=== PATIENT | female | born 1940 | race Caucasian/White ===

== ENCOUNTER 2017-02-12 00:47 | Emergency (ER) | payer MEDICARE ==
[~2017-02-12] VITALS: Ht 157.5 cm; Wt 67.6 kg
[2017-02-12 01:47] LABS: Basophils # (auto) 0 uL; Basophils % (auto) 0.6 % (0.0-2.0); Eosinophils # (auto) 0.2 uL; Eosinophils % (auto) 2.9 % (0.0-7.0); Hematocrit 41.2 % (36.0-46.0); Hemoglobin 13.6 g/dL (12.2-16.2); Lymphocytes # (auto) 2.9 uL; Lymphocytes % (auto) 37.7 % (10.0-50.0); Mean Corpuscular Hemoglobin 29.8 pg (28.0-32.0); Mean Corpuscular Hgb Conc. 33.1 g/dL (32.0-36.0); Mean Corpuscular Volume 89.9 fL (80.0-100.0); Mean Platelet Volume 8.7 fL (7.4-10.4); Monocytes # (auto) 0.7 uL; Monocytes % (auto) 9.8 % (0.0-12.0); Neutrophils # (auto) 3.7 uL; Platelet Count (auto) 293 10^3/uL (140-450); Red Cell Distribution Width 13.7 % (11.6-16.0); White Blood Cell 7.6 10^3/uL (4.4-10.8)
[2017-02-12 02:01] LABS: Urine Bilirubin Negative (Negative); Urine Blood Negative /uL (Negative); Urine Ca Oxalate Crystal MANY (None Seen); Urine Color Yellow (Yellow); Urine Glucose Normal (Normal); Urine Granular Cast FEW /lpf (0); Urine Hyaline Cast FEW /lpf (0 - 2); Urine Ketone TRACE (Negative); Urine Mucus FEW (None Seen); Urine Nitrite Negative (Negative); Urine RBC 4 /hpf (0 - 4); Urine Squamous Epithelial Cell FEW /hpf (<5); Urine pH 5.5 (5.0-8.0)
[2017-02-12 02:03] LABS: INR 0.9 (0.9-1.15); Partial Thromboplastin Time 27.1 sec (22.64-33.71); Prothrombin Time 9.8 sec (9.37-12.3)
[2017-02-12 02:21] LABS: Albumin 3.9 g/dL (3.4-5.0); Alkaline Phosphatase 65 U/L (45-117); Anion Gap 8 (5-15); Aspartate Aminotransferase 18 U/L (15-37); BUN/Creatinine Ratio 19.2; Bilirubin, Total 0.2 mg/dL (0.2-1.0); Blood Urea Nitrogen 15 mg/dL (7-18); Calcium 8.9 mg/dL (8.5-10.1); Carbon Dioxide 29 mmol/L (21-32); Chloride 106 mmol/L (98-107); GFR African American 93 mL/min; GFR Non-African American 77 mL/min; Glucose 89 mg/dL (74-106); Magnesium 2.3 mg/dL (1.6-2.6); Potassium 3.7 mmol/L (3.5-5.1); Sodium 143 mmol/L (136-145); Total Protein 7.3 g/dL (6.4-8.2)
[2017-02-12 03:13] VITALS: BP 199/81
[2017-02-12] MEDS ORDERED: cloNIDine HCL 0.1 MG TAB PO ONE (03:45)
== END 2017-02-12 04:50 | disposition left against medical advice (07) ==
LOC: ER 00:47
DX: R03.0 Elevated blood-pressure reading, without diagnosis of hypertension (principal); R51 Headache; Z53.21 Procedure and treatment not carried out due to patient leaving prior to being seen by health care provider
CPT/HCPCS: 36415; 70450; 71010; 80053; 81001; 83735; 84484; 85025; 85610; 85730; 93005

== ENCOUNTER 2024-03-18 13:31 | Emergency (ER) | payer MEDICARE, OTHER ==
[~2024-03-18] VITALS: Ht 157.5 cm; Wt 60.1 kg
[2024-03-18 14:19] LABS: Urine Bacteria FEW /hpf (None Seen); Urine Blood Negative /uL (Negative); Urine Clarity Clear (Clear); Urine Color Light-Yellow (Yellow); Urine Protein, UAD Negative (Negative); Urine Specific Gravity 1.015 (1.001-1.035); Urine Urobilinogen Normal (Negative); Urine WBC 5 /hpf (0 - 5)
[2024-03-18 15:44] VITALS: BP 138/52; PULSE 53; RESP 18; TEMP 97.7; O2SAT 97
[2024-03-18] MEDS ORDERED: ACET-1080 PO (15:49)
[2024-03-18] MEDS ORDERED: PRED20TA2 PO (15:49)
[2024-03-18] MEDS: methylPREDNISolone SOD SUCC 125 MG/2 ML VL IM ONE (15:56)
== END 2024-03-18 16:01 | disposition home or self-care (01) ==
LOC: ER 13:31
DX: M51.16 Intervertebral disc disorders with radiculopathy, lumbar region (principal); I10 Essential (primary) hypertension; Z86.73 Personal history of transient ischemic attack (TIA), and cerebral infarction without residual deficits; Z98.890 Other specified postprocedural states; Z88.8 Allergy status to other drugs, medicaments and biological substances; Z79.899 Other long term (current) drug therapy
CPT/HCPCS: 72100; 81001; 96372; 99284; J2919

== ENCOUNTER 2024-08-11 17:17 | Emergency (ER) | payer OTHER ==
[~2024-08-11] VITALS: Ht 157.5 cm; Wt 63.5 kg
[~2024-08-11 17:17] MED LIST: ACET-1080 PO; PRED20TA2 PO
--- NOTE | 2024-08-11 18:48 | DVH ---
EXAM: XY R KNEE 3V XRAY CLINICAL HISTORY: Trauma/fall COMPARISON: None TECHNIQUE: XY R KNEE 3V XRAY Findings/Impression: 3 views of the right knee. There is no evidence of an acute fracture, dislocation, blastic, or lytic lesions. Mild tricompartmen wanda reactive osteophytosis suggestive of osteoarthritis. No radiopaque foreign bodies. No joint effusion or superficial soft tissue abnormalities.
--- NOTE | 2024-08-11 19:22 | DVH ---
EXAM: CT MAXILLOFACIAL WITHOUT INDICATION: FACE PAIN S/P FALL EXAM DATE: 08/11/2024 06:27 PM COMPARISON: None TECHNIQUE: Multiple axial CT images of the maxilla and face were obtained using bone algorithm. Axial and coronal reformatting was done. Bone and soft tissue windows were reviewed. Radiation Dose Information: CT Dose: CTDI volume is 62.06 mGy. Dose-length product is 1310.19 mGy*cm Findings: There is no evidence of an acute fracture or traumatic subluxations. No evidence of lytic, blastic, or osseous destructive lesions. The paranasal sinuses, middle ear cavities, and mastoid air cells are normally aerated. The globes an d orbits are within normal limits. The nasal septum, nasal cavity, nasopharynx, and oropharynx are grossly unremarkable. The thyroid gland is diminutive. The paraspinal and neck soft tissues appear within normal limits. Mo derate degenerative changes of the cervical spine. Impression: 1. No evidence of an acute fracture.
--- NOTE | 2024-08-11 19:45 | ED.PDOC ---
Rajan. trauma (HPI) HPI Comments This patient is a pleasant 83-year-old female who arrives to the ED today for evaluation of right-sided face pain and right knee pain status post ground [place] a market. Patient states she was in the marked when she tripped over a case of water, landing on the right side of her face and right knee. Patient denies any LOC. Patient states she got a small cut to her right- sided lower lip, but there was no active bleed at time of evaluation.. Patient denies any fever nausea or vomiting. Patient was hypertensive on arrival. Patient states her tetanus is out-of-date. Chief Complaint: Fall Injury Time Seen by MD: 17:51 Primary Care Provider: DIOGENES Reviewed notes: Nurses Notes Allergies: Coded Allergies: Methocarbamol (Verified Allergy, Mild, 06/10/12) Baclofen (Verified Allergy, Unknown, 02/12/17) Diltiazem (Verified Allergy, Unknown, 02/12/17) Hydrochlorothiazide (Verified Allergy, Unknown, 02/12/17) Potassium Chloride (Verified Allergy, Unknown, 02/12/17) Sulfamethoxazole w/Trimethoprim (Verified Allergy, Unknown, 02/12/17) Terbinafine (Verified Allergy, Unknown, 02/12/17) Home Meds Active Scripts Prednisone (Prednisone) 20 Mg Tab, 40 MG PO DAILY, #20 TAB Prov:GISELL MAGALLON 03/18/24 Acetaminophen (Tylenol 8 Hour Arthritis) 650 Mg Tab, 650 MG PO TID, #30 TAB Prov:GISELL MAGALLON 03/18/24 Information Source: Patient, Friend Mode of Arrival: Ambulatory Severity: Mild Timing: Days Duration: Since onset Prehospital treatment: None Location: Face, (R) Knee Location of laceration: Mouth Mechanism: Fall Past Medical History PAST MEDICAL HISTORY: CVA, HTN Surgical History: Hysterectomy, Tubal Ligation 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 OPERATOR History Family History Family History: No family hx of Heart fr[place] Family History (Other): seizures, parkinsons Social History Smoker: Non-Smoker Alcohol: Rarely Drugs: Denies Drug Use Lives In: Home Constitutional: denies: chills, diaphoresis, fatigue, fever, malaise, sweats, weakness, others EENTM: reports: others (Right-sided facial pain); denies: blurred vision, double vision, ear bleeding, ear discharge, ear drainage, ear pain, ear ringing, eye pain, eye redness, hearing loss, mouth pain, mouth swelling, nasal discharge, nose bleeding, nose congestion, nose pain, photophobia, tearing, throat pain, throat swelling, voice changes Respiratory: denies: cough, hemoptysis, orthopnea, SOB at rest, shortness of breath, SOB with excertion, stridor, wheezing, others Cardiovascular: denies: chest pain, dizzy spells, diaphoresis, Dyspnea on exertion, edema, irregular heart beat, left arm pain, lightheadedness, palpitations, PND, syncope, others Gastrointestinal: denies: abdomen distended, abdominal pain, blood streaked bowels, constipated, diarrhea, dysphagia, difficulty swallowing, hematemesis, melena, nausea, poor appetite, poor fluid intake, rectal bleeding, rectal pain, vomiting, others Genitourinary: denies: abnormal vagina bleeding, burning, dyspareunia, dysuria, flank pain, frequency, hematuria, incontinence, pain, , vagina discharge, urgency, others Neurological: denies: dizziness, fainting, headache, left sided numbness, left sided weakness, numbness, paresthesia, pre-existing deficit, right sided numbness, right sided weakness, seizure, speech problems, tingling, tremors, weakness, others Musculoskeletal: reports: others (Right knee pain); denies: back pain, gout, joint pain, joint swelling, muscle pain, muscle stiffness, neck pain Integumetry: reports: laceration (Right-sided lower lip); denies: bruises, change in color, change in hair/nails, dryness, lesions, lumps, rash, wounds, others Allergic/Immunocompromised: denies: Difficulty Healing, Frequent Infections, Hives, Itching, others Hematologic/Lymphatic: denies: anemia, blood clots, easy bleeding, easy bruising, swollen glands, others Endocrine: denies: excessive hunger, excessive sweating, excessive thirst, excessive urination, flushing, intolerance to cold, intolerance to heat, unexplained weight gain, unexplained weight loss, others Psychiatric: denies: anxiety, bipolar disorder, depression, hopeless, panic disorder, schizophrenia, sleepless, suicidal, others Physical Exam General Appearance: Mild Distress (Moderate distress due to some facial pain and knee pain concerns.), Normal HEENT: Pharynx Normal, TMs Normal, Other (Patient displays some mild edema of the right-sided face in and around the zygomatic arch. No significant signs of trauma. No skull depressions or deformities. Patient has a superficial 2 mm lack to the right-sided lower lip.) Neck: Full Range of Motion, Non-Tender, Normal, Normal Inspection Respiratory: Chest Non-Tender, Lungs Clear, No Accessory Muscle Use, No Respiratory Distress, Normal Breath Sounds Cardiovascular: No Edema, No JVD, No Murmur, No Gallop, Normal Peripheral Pulses, Regular Rate/Rhythm Breast Exam: Deferred Gastrointestinal: No Organomegaly, Non Tender, No Pulsatile Mass, Normal Bowel Sounds, Soft Genitalia: Deferred Pelvic: Deferred Rectal: Deferred Extremities: No calf tenderness, Normal capillary refill, No pedal edema, Other (Diffuse anterior right knee tenderness to palpation throughout the inferior patella into the tibial tuberosity region. Possible mild edema. No ecchymosis or erythema. [id number] reduced range of motion. 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 Was a procedure done?: No Differential Diagnosis Multiple Trauma: Other (Subarachnoid hemorrhage, subdural hematoma, skull fracture, right knee fracture, right knee contusion, head injury, fall) X-Ray, Labs, Meds, VS Vital Signs Date Time Temp Pulse Resp B/P (MAP) Pulse Ox O2 Delivery O2 Flow Rate FiO2 08/11/24 17:30 99.5 81 18 171/77 (108) 96 X-Ray, Labs, Meds, VS Comment All studies performed the ED today were evaluated by me personally. Maxillofacial evaluation is unremarkable for any facial fractures. Right knee imaging studies were unremarkable for any acute fractures, but did displays degeneration of her right knee. Patient received a tetanus update. Advised patient utilize Tylenol and or Motrin as needed for pain relief. Time of 1ST Reevaluation: 19:44 Reevaluation 1ST: Unchanged Consultation: PCP Patient Education/Counseling: Diagnosis, Treatment Family Education/Counseling: Diagnosis, Treatment Departure 1 Departure Time of Disposition: 19:44 Impression: Primary Impression: Fall Additional Impressions: Facial contusion Knee contusion Disposition: HOME / SELF CARE / HOMELESS Condition: Stable Additional Instructions: Advised Tylenol and or Motrin as needed for pain relief as well as ice therapy. Discharged With: Self, Relative Critical Care Note Critical Care Time?: No Stability Stability form required: No Heart Score Heart Score: Heart Score Response (Comments) Value History N/A 0 EKG N/A 0 Age N/A 0 Risk Factors N/A 0 Troponin N/A 0 Total 0 HANNA FRANCO PAC Aug 11, 2024 19:45
[2024-08-11] MEDS: TETANUS-DIPTH-ACEL PERTUSSIS 0.5ML SYR Tdap IM ONE (21:30)
[2024-08-11 23:29] VITALS: BP 157/60; PULSE 53; RESP 18; TEMP 98.3; O2SAT 98
== END 2024-08-11 19:45 | disposition home or self-care (01) ==
LOC: ER 17:17
DX: S00.83XA Contusion of other part of head, initial encounter (principal); S80.01XA Contusion of right knee, initial encounter; I10 Essential (primary) hypertension; Z79.52 Long term (current) use of systemic steroids; Z86.73 Personal history of transient ischemic attack (TIA), and cerebral infarction without residual deficits; Z88.1 Allergy status to other antibiotic agents; Z88.2 Allergy status to sulfonamides; Z90.710 Acquired absence of both cervix and uterus; Z98.51 Tubal ligation status; W01.0XXA Fall on same level from slipping, tripping and stumbling without subsequent striking against object, initial encounter; Y93.89 Activity, other specified; Y92.89 Other specified places as the place of occurrence of the external cause; Y99.8 Other external cause status
CPT/HCPCS: 70486; 73562; 90471; 90715

== ENCOUNTER 2024-08-20 06:49 | Inpatient (IN) | payer OTHER ==
[~2024-08-20] VITALS: Ht 165.1 cm; Wt 62.4 kg
[2024-08-20] VITALS (7 sets, daily range): BP systolic 117–145; BP diastolic 52–63; PULSE 60–74; RESP 16–20; TEMP 97.8–99.5; O2SAT 90–99
[2024-08-20] MEDS: HYDROcodone-ACET 5/325MG TAB PO ONE (07:00)
--- NOTE | 2024-08-20 07:07 | ED.PDOC ---
Musculoskeletal HPI Comments 83Y F with PMHx HTN, hysterectomy, and tubal ligation presents to ED via EMS for chief complaint RUE pain x1wk. Pt had a fall 1wk ago and landed on her face. Pt says she experienced lip bleeding immediately after the fall. Days after the fall, pt developed bruise on rt knee and pain on rt arm. Pt states her RUE feels numb and paralyzed today. EMS provided pt with Acetaminophen IV. Pt was seen at [facility] ER on 08/11/2024 for dx fall. Chief Complaint: Upper Extremity Time Seen by MD: 06:50 Primary Care Provider: DIOGENES Langley Notes: Medications, Allergies Allergies: Coded Allergies: Methocarbamol (Verified Allergy, Mild, 06/10/12) Baclofen (Verified Allergy, Unknown, 02/12/17) Diltiazem (Verified Allergy, Unknown, 02/12/17) Hydrochlorothiazide (Verified Allergy, Unknown, 02/12/17) Potassium Chloride (Verified Allergy, Unknown, 02/12/17) Sulfamethoxazole w/Trimethoprim (Verified Allergy, Unknown, 02/12/17) Terbinafine (Verified Allergy, Unknown, 02/12/17) Home Meds Active Scripts Prednisone (Prednisone) 20 Mg Tab, 40 MG PO DAILY, #20 TAB Prov:GISELL MAGALLON 03/18/24 Acetaminophen (Tylenol 8 Hour Arthritis) 650 Mg Tab, 650 MG PO TID, #30 TAB Prov:GISELL MAGALLON 03/18/24 Information Source: Patient, Emergency Med Personnel Mode of Arrival: EMS Brought in by: EMS Location: Right Extremity Location: Elbow, Knee, Shoulder Timing: Weeks Prehospital treatment: Pain Meds Severity: Mild Able to Move Extremity: Yes Bear Weight: Limited Pain: Mild Mechanism: Unknown Circumstances: Fall Onset of Symptoms: After Trauma Symptoms: Pain DVT Risk Factors: NONE Last Tetanus: UTD Associated signs and symptoms: Shoulder pain, Weakness, Knee pain, Numbness, Elbow pain Past Medical History PAST MEDICAL HISTORY: CVA, HTN Surgical History: Hysterectomy, Tubal Ligation 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 MACHINE OPERATOR History Family History Family History: No family hx of Heart fr[place] Family History (Other): seizures, parkinsons Social History Smoker: Non-Smoker Alcohol: Rarely Drugs: Denies Drug Use Lives In: Home Constitutional: denies: chills, diaphoresis, fatigue, fever, malaise, sweats, weakness, others EENTM: denies: blurred vision, double vision, ear bleeding, ear discharge, ear drainage, ear pain, ear ringing, eye pain, eye redness, hearing loss, mouth pain, mouth swelling, nasal discharge, nose bleeding, nose congestion, nose pain, photophobia, tearing, throat pain, throat swelling, voice changes, others Respiratory: denies: cough, hemoptysis, orthopnea, SOB at rest, shortness of breath, SOB with excertion, stridor, wheezing, others Cardiovascular: denies: chest pain, dizzy spells, diaphoresis, Dyspnea on exertion, edema, irregular heart beat, left arm pain, lightheadedness, palpitations, PND, syncope, others Gastrointestinal: denies: abdomen distended, abdominal pain, blood streaked bowels, constipated, diarrhea, dysphagia, difficulty swallowing, hematemesis, melena, nausea, poor appetite, poor fluid intake, rectal bleeding, rectal pain, vomiting, others Genitourinary: denies: abnormal vagina bleeding, burning, dyspareunia, dysuria, flank pain, frequency, hematuria, incontinence, pain, , vagina discharge, urgency, others Neurological: denies: dizziness, fainting, headache, left sided numbness, left sided weakness, numbness, paresthesia, pre-existing deficit, right sided numbness, right sided weakness, seizure, speech problems, tingling, tremors, weakness, others Musculoskeletal: reports: joint pain (rt knee, rt elbow, rt shoulder); denies: back pain, gout, joint swelling, muscle pain, muscle stiffness, neck pain, others Integumetry: denies: bruises, change in color, change in hair/nails, dryness, laceration, lesions, lumps, rash, wounds, others Allergic/Immunocompromised: denies: Difficulty Healing, Frequent Infections, Hives, Itching, others Hematologic/Lymphatic: denies: anemia, blood clots, easy bleeding, easy bruising, swollen glands, others Endocrine: denies: excessive hunger, excessive sweating, excessive thirst, excessive urination, flushing, intolerance to cold, intolerance to heat, unexplained weight gain, unexplained weight loss, others Psychiatric: denies: anxiety, bipolar disorder, depression, hopeless, panic disorder, schizophrenia, sleepless, suicidal, others All Other Systems: Reviewed and Negative Physical Exam General Appearance: No Apparent Distress, Normal HEENT: Normal ENT Inspection, Pharynx Normal, TMs Normal Neck: Full Range of Motion, Non-Tender, Normal, Normal Inspection Respiratory: Chest Non-Tender, Lungs Clear, No Accessory Muscle Use, No Respiratory Distress, Normal Breath Sounds Cardiovascular: No Edema, No JVD, No Murmur, No Gallop, Normal Peripheral Pulses, Regular Rate/Rhythm Breast Exam: Deferred Gastrointestinal: No Organomegaly, Non Tender, No Pulsatile Mass, Normal Bowel Sounds, Soft Genitalia: Deferred Pelvic: Deferred Rectal: Deferred Extremities: No calf tenderness, Normal capillary refill, Normal inspection, N ormal range of motion, Non-tender, No pedal edema Musculoskeletal : Location: Right Extremity Location: Elbow, Knee Apperance: Tenderness Neurologic: Alert, sash sticker II-XII nml as Tested, No Motor Deficits, Normal Affect, Normal Mood, No Sensory Deficits Cerebellar Function: Normal Reflexes: Normal Skin: Dry, Normal Color, Warm Lymphatic: No Adenopathy Was a procedure done? Was a procedure done?: No Differential Diagnosis EXT Differential Diagnosis: Fracture, Sprain, Dislocation, Contusion, Strain X-Ray, Labs, Meds, VS Vital Signs Date Time Temp Pulse Resp B/P (MAP) Pulse Ox O2 Delivery O2 Flow Rate FiO2 08/20/24 07:19 67 18 95 Room Air* 0 21 08/20/24 07:19 98.1 67 18 113/56 (75) 95 98.1 08/20/24 06:53 98.0 71 18 148/67 (94) 99 Lab Test 08/20/24 09:46 Range/Units White Blood Count 9.7 4.4-10.8 10^3/uL Red Blood Count 4.22 4.0-5.20 10^6/uL Hemoglobin 13.0 12.2-16.2 g/dL Hematocrit 38.8 36.0-46.0 % Mean Corpuscular Volume 91.9 80.0-100.0 fL Mean Corpuscular Hemoglobin 30.9 28.0-32.0 pg Mean Corpuscular Hemoglobin Concent 33.6 32.0-36.0 g/dL Red Cell Distribution Width 13.8 11.8-14.3 % Platelet Count 255 140-450 10^3/uL Mean Platelet Volume 8.1 6.9-10.8 fL Neutrophils (%) (Auto) 69.4 37.0-80.0 % Lymphocytes (%) (Auto) 14.8 10.0-50.0 % Monocytes (%) (Auto) 15.0 H 0.0-12.0 % Eosinophils (%) (Auto) 0.4 0.0-7.0 % Basophils (%) (Auto) 0.4 0.0-2.0 % Neutrophils # (Auto) 6.7 1.6-8.6 10 ^3/uL Lymphocytes # (Auto) 1.4 0.4-5.4 10 ^3/uL Monocytes # (Auto) 1.5 H 0-1.3 10 ^3/uL Eosinophils # (Auto) 0 0-0.8 10 ^3/uL Basophils # (Auto) 0 0-0.2 10 ^3/uL Nucleated Red Blood Cells 0.0 % Sodium Level 136 136-145 mmol/L Potassium Level 3.8 3.5-5.1 mmol/L Chloride Level 102 98-107 mmol/L Carbon Dioxide Level 24 20-31 mmol/L Anion Gap 10 5-15 Blood Urea Nitrogen 15 9-23 mg/dL Creatinine 0.73 0.550-1.02 mg/dL Glomerular Filtration Rate Calc 82 >90 mL/min BUN/Creatinine Ratio 20.5 H 10.0-20.0 Serum Glucose 113 H 74-106 mg/dL Calcium Level 10.2 8.7-10.4 mg/dL Troponin I High Sensitivity 4 </=34 ng/L Current Medications Medications (Trade) Dose Ordered Sig/Evelyne Route Start Time Stop Time Status Last Admin Acetaminophen/ Hydrocodone Bitart ([place] 5/325MG Tab) 1 tab ONCE ONCE PO 08/20/24 07:00 08/20/24 07:01 DC 08/20/24 07:00 [place] [address] Ph: [phone] DIAGNOSTIC IMAGING Diagnostic Imaging Report : [id number] Signed PATIENT: SAURAV CABRERA ACCT: [id number] UNIT: [id number] : 1940 LOC: ER ROOM / BED: / AGE / SEX: 83 / F ADM STATUS: REG ER SERVICE [id number] ORDERING PHYSICIAN: KAREN GARZON MD PROCEDURE(s): RELB3 - R ELBOW 3 VIEW XRAY REASON: FALL A WEEK AGO / PAIN ORDER NUMBER(s): [id number], ACCESSION NUMBER(s): [id number] CLINICAL INFORMATION: 83 years old, Female; fall injury 1 week ago. Pain. TECHNIQUE: 3 views of the right elbow were obtained. COMPARISON: No prior imaging of the right elbow was available for comparison at the time of dictation. FINDINGS: There is a moderate amount of fluid in the joint, possible hemarthrosis in the setting of recent trauma. There are small densities adjacent to the radial/lateral aspect of the radial head, may be sequela of avulsion injury in the appropriate clinical setting. Curvilinear density along the proximal dorsal aspect of the olecranon, may be sequela of tendinopathy, of uncertain chronicity. Thickened appearing distal triceps tendon. Moderate arthritic changes are seen. Mild diffuse soft tissue swelling around the elbow. IMPRESSION: 1. Multiple small densities are seen adjacent to the lateral /radial aspect of the radial head, suspected sequela of avulsion injury. 2. Moderate fluid in the joint, possible hemarthrosis in the setting of recent trauma. 3. Soft tissue swelling near the expected location of the triceps tendon insertion with curvilinear density, may be sequela of tendinopathy, of uncertain chronicity. Correlate with clinical findings. MRI may be helpful to further characterize. 4. Additional findings as detailed above. ATED BY: RJ ESTEBAN DO DICTATED DATE/TIME: 08/20/24832 SIGNED BY: RJ ESTEBAN DO SIGNED DATE/TIME: 08/20/24832 CC: [place] [address] Ph: [phone] DIAGNOSTIC IMAGING Diagnostic Imaging Report : [id number] Signed PATIENT: SAURAV CABRERA ACCT: [id number] UNIT: [id number] : 1940 LOC: ER ROOM / BED: / AGE / SEX: 83 / F ADM STATUS: REG ER SERVICE 1 ORDERING PHYSICIAN: KAREN GARZON MD PROCEDURE(s): RKN3 - R KNEE 3V XRAY REASON: FALL WEEK AGO PAIN ORDER NUMBER(s): [id number], ACCESSION NUMBER(s): [id number] CLINICAL INFORMATION: 83 years old, Female; right knee pain after fall injury 1 week ago. TECHNIQUE: 3 views of the right knee were obtained. COMPARISON: XY R KNEE 3V XRAY on DOS: 08/11/24 FINDINGS: No acute fracture or dislocation. Moderate arthritic changes, most prominent involving the medial compartment and patellofemoral compartment. Prominent spurring of the superior pole of the patella. Calcifications posterior to the distal femur are most likely vascular calcifications. No significant joint effusion visualized. Somewhat limited evaluation for joint effusion on cross-table lateral view. IMPRESSION: 1. No acute fracture visualized. 2. Chronic appearing findings as described above. Correlate with clinical findings. If clinically indicated, CT or MRI could be obtained to further evaluate. ATED BY: RJ ESTEBAN DO DICTATED DATE/TIME: 08/20/24835 SIGNED BY: RJ ESTEBAN DO SIGNED DATE/TIME: 08/20/24835 CC: Time of 1ST Reevaluation: 07:20 Reevaluation 1ST: Unchanged Patient Education/Counseling: Diagnosis, Treatment Family Education/Counseling: No Family Present Departure 1 Departure Time of Disposition: 10:42 (Patient's family is at bedside and actually has a independent historian who says that patient has had multiple falls. Patient reports being very weak and syncopized seeing multiple times last couple days. Workup so far is benign however we will admit patient for further workup and expert consultation) Impression: Primary Impression: Frequent falls Additional Impressions: Syncope and collapse Right arm pain Right arm numbness Right knee pain Qualified Codes: M25.561 - Pain in right knee Disposition: ADMITTED INPATIENT Admit to: Med Surg Condition: Serious Critical Care Note Critical Care Time?: No Stability Stability form required: No I personally scribed for KAREN GARZON MD ([email or web address]) on 08/20/24 at 07:07. Electronically submitted by Yomaira Martinez ([email or web address]). I personally scribed for KARNE GARZON MD ([email or web address]) on 08/20/24 at 08:49. Electronically submitted by Yomaira Martinez ([facility] KAREN GARZON MD Aug 20, 2024 07:07
--- NOTE | 2024-08-20 08:35 | DVH ---
CLINICAL INFORMATION: 83 years old, Female; fall injury 1 week ago. Pain. TECHNIQUE: 3 views of the right elbow were obtained. COMPARISON: No prior imaging of the right elbow was available for comparison at the time of dictation . FINDINGS: There is a moderate amount of fluid in the joint, possible hemarthrosis in the setting of r ecent trauma. There are small densities adjacent to the radial/lateral aspect of the radial head, may be sequela of avulsion injury in the appropriate clinical setting. Curvilinear density along the pro ximal dorsal aspect of the olecranon, may be sequela of tendinopathy, of uncertain chronicity. Thicke monica appearing distal triceps tendon. Moderate arthritic changes are seen. Mild diffuse soft tissue swelling around the elbow. IMPRESSION: 1. Multiple small densities are seen adjacent to the lateral /radial aspect of the radial head, suspe cted sequela of avulsion injury. 2. Moderate fluid in the joint, possible hemarthrosis in the setting of recent trauma. 3. Soft tissue swelling near the expected location of the triceps tendon insertion with curvilinear d ensity, may be sequela of tendinopathy, of uncertain chronicity. Correlate with clinical findings. MR I may be helpful to further characterize. 4. Additional findings as detailed above.
--- NOTE | 2024-08-20 08:38 | DVH ---
CLINICAL INFORMATION: 83 years old, Female; right knee pain after fall injury 1 week ago. TECHNIQUE: 3 views of the right knee were obtained. COMPARISON: XY R KNEE 3V XRAY on DOS: 08/11/24 FINDINGS: No acute fracture or dislocation. Moderate arthritic changes, most prominent involving the medial compartment and patellofemoral compartment. Prominent spurring of the superior pole of the pat dante. Calcifications posterior to the distal femur are most likely vascular calcifications. No signif icant joint effusion visualized. Somewhat limited evaluation for joint effusion on cross-table latera l view. IMPRESSION: 1. No acute fracture visualized. 2. Chronic appearing findings as described above. Correlate with clinical findings. If clinically in dicated, CT or MRI could be obtained to further evaluate.
[2024-08-20 09:57] LABS: Basophils # (auto) 0 10 ^3/uL (0-0.2); Basophils % (auto) 0.4 % (0.0-2.0); Eosinophils # (auto) 0 10 ^3/uL (0-0.8); Eosinophils % (auto) 0.4 % (0.0-7.0); Hematocrit 38.8 % (36.0-46.0); Lymphocytes # (auto) 1.4 10 ^3/uL (0.4-5.4); Lymphocytes % (auto) 14.8 % (10.0-50.0); Mean Corpuscular Hemoglobin 30.9 pg (28.0-32.0); Mean Corpuscular Hgb Conc. 33.6 g/dL (32.0-36.0); Mean Corpuscular Volume 91.9 fL (80.0-100.0); Monocytes # (auto) 1.5 10 ^3/uL (0-1.3); Neutrophils # (auto) 6.7 10 ^3/uL (1.6-8.6); Neutrophils % (auto) 69.4 % (37.0-80.0); Platelet Count (auto) 255 10^3/uL (140-450); Red Blood Cells 4.22 10^6/uL (4.0-5.20); Red Cell Distribution Width 13.8 % (11.8-14.3); White Blood Cell 9.7 10^3/uL (4.4-10.8)
[2024-08-20 10:05] LABS: Chloride 102 mmol/L (98-107); Potassium 3.8 mmol/L (3.5-5.1)
[2024-08-20 10:06] LABS: Anion Gap 10 (5-15); Calcium 10.2 mg/dL (8.7-10.4); Carbon Dioxide 24 mmol/L (20-31)
[2024-08-20 10:11] LABS: BUN/Creatinine Ratio 20.5 (10.0-20.0); Blood Urea Nitrogen 15 mg/dL (9-23)
[2024-08-20 10:18] LABS: Glucose 113 mg/dL (74-106); Sodium 136 mmol/L (136-145)
--- NOTE | 2024-08-20 10:25 | DVH ---
CLINICAL INFORMATION: 83 years old, Female; syncope and multiple falls. TECHNIQUE: Axial imaging was obtained through the brain without contrast. Coronal and sagittal refor matted images were obtained, reviewed, and stored. Images were reviewed in brain and bone windows. A ll CT scans at this medical facility are performed using dose modulation techniques as appropriate to a performed exam including the following: Automated exposure control was utilized; adjustment of the MA and/or KV according to patient size; and use of iterative reconstruction technique. CTDIvol = 49.6 mGy DLP = 794.2 mGy-cm COMPARISON: None FINDINGS: There is no acute intracranial hemorrhage or extraaxial fluid collection. No mass effect o r midline shift. Atrophic changes with prominence of the ventricles and widening of the sulci. Basa l cisterns are patent. Scattered areas of hypoattenuation are seen in the periventricular and subcort ical white matter, which are nonspecific but most likely sequelae of small vessel ischemic disease. The calvarium is unremarkable. Paranasal sinuses and mastoid air cells are clear. IMPRESSION: 1. No CT evidence of acute intracranial abnormality. 2. Nonacute findings as described above.
--- NOTE | 2024-08-20 10:36 | DVH ---
CLINICAL INFORMATION: 83 years old, Female; syncope and multiple falls. TECHNIQUE: Single AP portable chest radiograph was obtained. COMPARISON: None FINDINGS: Lungs: Atelectasis in the lung bases. No focal consolidation. Cardiac: Heart size is within normal limits. Pulmonary vasculature: Unremarkable. Mediastinum/kj: Unremarkable. Bones: No acute osseous abnormality identified. Other: No other significant findings. IMPRESSION: Atelectasis in the lung bases. No focal consolidation.
--- NOTE | 2024-08-20 10:38 | DVH ---
CLINICAL INFORMATION: 83 years old, Female; syncope and multiple falls. TECHNIQUE: Single AP view of the pelvis was obtained. COMPARISON: None FINDINGS: No evidence of acute fracture. No dislocation. Bowel gas and stool partially obscure visual ization of the sacrum, coccyx, and iliac bones. 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 IMPRESSION: 1. Evidence of acute fracture. 2. Nonacute findings as described above. 3. Bowel gas and stool partially obscure visualization.
--- NOTE | 2024-08-20 10:58 | DVHHP2 ---
History of Present Illness Reason for Visit: frequent falls History of Present Illness 83-year-old with a past medical history of CVA and hypertension patient comes in with complaints of severe pain in the upper extremities face patient has had multiple falls initially was she was seen in the hospital a week ago and since that point in time patient has fallen multiple times having syncopal episodes or stated syncopal episodes or episodes of weakness patient does have a history of CVA with weakness has fallen multiple times hitting her arms hitting her legs hitting her face patient is in no acute distress at this point in time but does need help managing safety in activities of daily living patient was recommended for admission for further evaluation and PT evaluation Cardiovascular: HTN [employer]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 Dyspnea, Edema, Lt Headedness, Other Gastrointestinal: No: Nausea, Vomiting, Abdominal Pain, Diarrhea, Constipation, Melena, Hematochezia, Other Genitourinary: No Dysuria, No Frequency, No Incontinence, No Hematuria, No Retention, No Other Musculoskeletal: neck pain, arm pain, back pain, leg pain, foot pain; No: o ther, shoulder pain, hand pain Skin: No: Rash, Lesions, Jaundice, Bruising, Other Neurological: Weakness, Incoordination Allergies: Coded Allergies: Methocarbamol (Verified Allergy, Mild, 06/10/12) Baclofen (Verified Allergy, Unknown, 02/12/17) Diltiazem (Verified Allergy, Unknown, 02/12/17) Hydrochlorothiazide (Verified Allergy, Unknown, 02/12/17) Potassium Chloride (Verified Allergy, Unknown, 02/12/17) Sulfamethoxazole w/Trimethoprim (Verified Allergy, Unknown, 02/12/17) Terbinafine (Verified Allergy, Unknown, 02/12/17) Exam Vital Signs Vital Signs Date Time Temp Pulse Resp B/P (MAP) Pulse Ox O2 Delivery O2 Flow Rate FiO2 08/20/24 07:19 67 18 95 Room Air* 0 21 08/20/24 07:19 98.1 113/56 (75) 98.1 General Appearance: Alert, Oriented X3 HEENT: Atraumatic, PERRLA, EOMI Respiratory: Clear to auscultation, Normal air movement Cardiovascular: Regular rate, Normal S1, Normal S2 Abdominal: Normal bowel sounds, Soft, No tenderness Extremities: No clubbing, No cyanosis, No edema Skin: No rashes, No breakdown, No significant lesion Neuro: Normal gait, Normal speech, Strength at 5/5 X4 ext Psych/Mental Status: Mood NL Labs/Xrays Labs Test 08/20/24 10:40 08/20/24 09:46 Range/Units White Blood Count 9.7 4.4-10.8 10^3/uL Red Blood Count 4.22 4.0-5.20 10^6/uL Hemoglobin 13.0 12.2-16.2 g/dL Hematocrit 38.8 36.0-46.0 % Mean Corpuscular Volume 91.9 80.0-100.0 fL Mean Corpuscular Hemoglobin 30.9 28.0-32.0 pg Mean Corpuscular Hemoglobin Concent 33.6 32.0-36.0 g/dL Red Cell Distribution Width 13.8 11.8-14.3 % Platelet Count 255 140-450 10^3/uL Mean Platelet Volume 8.1 6.9-10.8 fL Neutrophils (%) (Auto) 69.4 37.0-80.0 % Lymphocytes (%) (Auto) 14.8 10.0-50.0 % Monocytes (%) (Auto) 15.0 H 0.0-12.0 % Eosinophils (%) (Auto) 0.4 0.0-7.0 % Basophils (%) (Auto) 0.4 0.0-2.0 % Neutrophils # (Auto) 6.7 1.6-8.6 10 ^3/uL Lymphocytes # (Auto) 1.4 0.4-5.4 10 ^3/uL Monocytes # (Auto) 1.5 H 0-1.3 10 ^3/uL Eosinophils # (Auto) 0 0-0.8 10 ^3/uL Basophils # (Auto) 0 0-0.2 10 ^3/uL Nucleated Red Blood Cells 0.0 % Sodium Level 136 136-145 mmol/L Potassium Level 3.8 3.5-5.1 mmol/L Chloride Level 102 98-107 mmol/L Carbon Dioxide Level 24 20-31 mmol/L Anion Gap 10 5-15 Blood Urea Nitrogen 15 9-23 mg/dL Creatinine 0.73 0.550-1.02 mg/dL Glomerular Filtration Rate Calc 82 >90 mL/min BUN/Creatinine Ratio 20.5 H 10.0-20.0 Serum Glucose 113 H 74-106 mg/dL Calcium Level 10.2 8.7-10.4 mg/dL Assessment/Plan Assessment/Plan Admit to [facility] Syncopal episodes weakness Frequent falls No acute source of infection at this time UA pending Patient with mild dehydration suspected poor intake All other labs within normal limits Physical therapy evaluation and possible need for rehab Multiple minor trauma secondary to falls No acute signs of falls fractures dislocations or acute intracranial bleeds at this point in time Plan discussed with: Patient My Orders Orders - SARATH VELEZ MD Procedure Category Date Status Time Glucose Blood PHA 08/20/24 Verified (Accu-Chek Comfort 12:00 Mild Sliding Scale PHA 08/20/24 Verified 12:00 Dextrose 50% Syringe PHA 08/20/24 Verified 11:00 Problem List: (1) Right arm numbness (2) Right arm pain (3) Right knee pain (4) Frequent falls (5) Facial contusion (6) Knee contusion Date of Service: Aug 20, 2024 Billing Provider: SARATH VELEZ MD Common Visit Codes: [id number] INP/OBS CARE (HIGH) SARATH VELEZ MD Aug 20, 2024 10:58
[2024-08-20] MEDS ORDERED: ACETAMINOPHEN 325 MG TAB PO PRN (11:00)
[2024-08-20] MEDS: SODIUM CHLORIDE 0.9% 1,000 ML IV SCH (11:00)
[2024-08-20] MEDS ORDERED: MAALOX PLUS or MAALOX 30 ML PO PRN (11:00)
[2024-08-20] MEDS ORDERED: ONDANSETRON HCL 4 MG/2 ML VIAL IV PRN (11:00)
[2024-08-20] MEDS ORDERED: DEXTROSE (50%) 50ML SYRG IV PRN (11:00)
[2024-08-20] MEDS: InsuLIN REG 1unit/0.01ml Soln (100units/ml) SC SCH (12:00)
[2024-08-20] MEDS: ACCU-CHEK COMFORT CURVE STRIP VI SCH (12:01)
[2024-08-20] MEDS ORDERED: BENA40TA71 PO (14:47)
[2024-08-20] MEDS ORDERED: ISOS1TAB28 PO (14:47)
[2024-08-20] MEDS ORDERED: AMLO1TAB22 PO (14:47)
[2024-08-20] MEDS ORDERED: OXYB5TAB14 PO (17:23)
[2024-08-20 19:03] LABS: Urine Bacteria MOD /hpf (None Seen); Urine Blood 2+ /uL (Negative); Urine Clarity Turbid (Clear); Urine Color Yellow (Yellow); Urine Mucus FEW (None Seen); Urine Protein, UAD TRACE (Negative); Urine Specific Gravity 1.024 (1.001-1.035); Urine Urobilinogen Normal (Negative); Urine WBC 180 /hpf (0 - 5); Urine pH 5.5 (5.0-9.0)
[2024-08-20] MEDS: MORPHINE SULFATE INJ 2 MG/ml SYRG IV PRN (21:14)
[2024-08-20] MEDS: DOCUSATE SOD 100 MG CAP PO PRN (21:14)
[2024-08-21] VITALS (7 sets, daily range): BP systolic 101–130; BP diastolic 51–64; PULSE 66–78; RESP 15–20; TEMP 97.8–98.3; O2SAT 91–96
[2024-08-21] MEDS: HYDROcodone-ACET 5/325MG TAB PO PRN (03:21)
[2024-08-21 07:02] LABS: Basophils # (auto) 0 10 ^3/uL (0-0.2); Basophils % (auto) 0.4 % (0.0-2.0); Eosinophils # (auto) 0.3 10 ^3/uL (0-0.8); Eosinophils % (auto) 3.8 % (0.0-7.0); Hematocrit 32.3 % (36.0-46.0); Hemoglobin 11.1 g/dL (12.2-16.2); Lymphocytes % (auto) 14.2 % (10.0-50.0); Mean Corpuscular Hemoglobin 31.3 pg (28.0-32.0); Mean Corpuscular Hgb Conc. 34.4 g/dL (32.0-36.0); Mean Corpuscular Volume 90.9 fL (80.0-100.0); Monocytes # (auto) 0.9 10 ^3/uL (0-1.3); Monocytes % (auto) 12.1 % (0.0-12.0); Neutrophils # (auto) 4.9 10 ^3/uL (1.6-8.6); Neutrophils % (auto) 69.5 % (37.0-80.0); Platelet Count (auto) 220 10^3/uL (140-450); Red Blood Cells 3.55 10^6/uL (4.0-5.20); Red Cell Distribution Width 13.5 % (11.8-14.3); White Blood Cell 7.1 10^3/uL (4.4-10.8)
[2024-08-21 07:11] LABS: Anion Gap 9 (5-15); Calcium 9.4 mg/dL (8.7-10.4); Carbon Dioxide 24 mmol/L (20-31); Chloride 105 mmol/L (98-107); Potassium 3.5 mmol/L (3.5-5.1); Sodium 138 mmol/L (136-145)
[2024-08-21 07:18] LABS: BUN/Creatinine Ratio 27.5 (10.0-20.0); Blood Urea Nitrogen 14 mg/dL (9-23); Glucose 103 mg/dL (74-106)
[2024-08-21] MEDS: cefTRIAXone 1GM/50ML D5W 50 ML IV SCH (10:15)
[2024-08-21] MEDS: OXYBUTYNIN CHL 5 MG TAB PO SCH (14:26)
[2024-08-21] MEDS: amLODIPine BESYLATE 5 MG TAB PO SCH (14:27)
[2024-08-21] MEDS: BENAZEPRIL HCL 10 MG TAB PO SCH (14:27)
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
[2024-08-21] MEDS: ISOSORBIDE MONONITRATE ER 60 MG TAB PO SCH (20:57)
[2024-08-22] VITALS (12 sets, daily range): BP systolic 97–153; BP diastolic 31–68; PULSE 62–85; RESP 16–18; TEMP 97.5–98.4; O2SAT 92–97
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
[2024-08-23 01:00] VITALS: BP 130/59; PULSE 79; RESP 18; TEMP 98.3; O2SAT 94
[2024-08-23 05:00] VITALS: BP 101/42; PULSE 66; RESP 16; TEMP 98.4; O2SAT 93
[2024-08-23 08:00] VITALS: PULSE 68; RESP 18; O2SAT 95
[2024-08-23 09:00] VITALS: BP 130/63; PULSE 68; RESP 18; TEMP 97.5; O2SAT 95
[2024-08-23] MEDS ORDERED: CEPH250C PO (10:43)
[2024-08-23] MEDS ORDERED: LOPERAMIDE HCL 2 MG CAP/TAB PO PRN (10:45)
[2024-08-23] MEDS ORDERED: HYDR-4072 PO (11:48)
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
== END 2024-08-23 13:00 | disposition home or self-care (01) | DRG 641 ==
LOC: ER 06:49 → EDBD 06:49 → EDUNIT# 06:49 → OVERFLOW 10:50 → WEST WING 13:47
PROVIDERS: ADMIT Student in an Organized Health Care Education/Training Program; ATTEND Student in an Organized Health Care Education/Training Program
DX: E86.0 Dehydration (principal); N39.0 Urinary tract infection, site not specified; J98.11 Atelectasis; R29.6 Repeated falls; I10 Essential (primary) hypertension; Z88.3 Allergy status to other anti-infective agents; Z88.1 Allergy status to other antibiotic agents; Z88.8 Allergy status to other drugs, medicaments and biological substances; Z86.73 Personal history of transient ischemic attack (TIA), and cerebral infarction without residual deficits; Z90.710 Acquired absence of both cervix and uterus; Z82.0 Family history of epilepsy and other diseases of the nervous system; Z98.51 Tubal ligation status
CPT/HCPCS: 36415; 70450; 71045; 72170; 73080; 73562; 80048; 81001; 82607; 82962; 84484; 85025; 87086; 87088; 87186; 97163; G0378